=== PATIENT | female | born 1965 | race Caucasian/White ===

== ENCOUNTER 2016-12-09 16:33 | Emergency (ER) | payer MEDICARE ==
[2016-12-09 20:20] LABS: RED BLOOD COUNT 4.22 M/UL (4.00-5.10); WHITE BLOOD COUNT 9.3 K/UL (4.5-11.0)
== END 2016-12-09 23:21 | disposition home or self-care (01) ==
LOC: ER1 16:33
PROVIDERS: Specialist/Technologist Athletic Trainer
DX: I12.9 Hypertensive chronic kidney disease with stage 1 through stage 4 chronic kidney disease, or unspecified chronic kidney disease (principal); N18.9 Chronic kidney disease, unspecified; R31.9 Hematuria, unspecified; Z94.0 Kidney transplant status; Z88.0 Allergy status to penicillin
CPT/HCPCS: 36415; 80053; 81001; 83605; 85025; 87086; 96360; 99285